=== PATIENT | male | born 1960 | race Caucasian/White ===

== ENCOUNTER 2020-07-05 20:29 | Emergency (ER) | payer BC, OTHER ==
[2020-07-05 20:36] VITALS: PULSE 89
--- NOTE | 2020-07-05 20:49 | EDM.PDOC ---
ED HPI GENERAL MEDICAL PROBLEM - General Chief Complaint: Neurological Problem Stated Complaint: POSS STROKE Time Seen by Provider: 07/05/20 20:32 Source of Information: Reports: Patient History Limitations: Reports: No Limitations - History of Present Illness INITIAL COMMENTS - FREE TEXT/NARRATIVE: Mr. Brown is a very pleasant 59-year-old gentleman who now presents to the ED with left hip weakness. He states that he fell off the toilet around 20:00 evening, due to left hip weakness. He had great difficulty getting up, and the triage nurse indicated that he needed assistance to be brought back to the exam room. He was brought to the ED by his daughter. He states that he has some discomfort in his left hip, but denies having pain anywhere else, or any tingling or numbness anywhere. He denies having a headache. No prior similar symptoms. The patient did not take any [id number] or home remedies prior to coming to the ED. The patient states that he has a history of both hypertension and diabetes, and that he takes his antihypertensive medication as prescribed every evening. An Accu-Chek at triage is found to be significantly elevated at 387. The pat ient states that that is not unusual, that his blood glucoses usually run between 80 and 350+. The patient does not take any other medications, including aspirin or anticoagulants. Here in the ED, the patient's initial BP is found to be elevated at 199/127, otherwise, he is hemodynamically stable, afebrile, saturating 96% on room air. Prior to 20:00 tonight, the patient denies having a recent fever, chills, sore throat, ear pain, nasal or sinus congestion, cough, dyspnea, chest pain, palpitations, nausea, vomiting, constipation, diarrhea, abdominal pain, urinary symptoms, recent weight gain or weight loss, recent bloody bowel movements or black bowel movements, recent joint aches, headaches, or rashes. The patient's PCP is Dr. Tavares Wayne. He did not receive an influenza vaccine this season, and declined an offer to receive one here in the ED. - Related Data Allergies Allergy/AdvReac Type Severity Reaction Status Date / Time No Known Allergies Allergy Verified 07/01/15 16:34 Home Meds: Home Meds Lisinopril 20 mg PO BID #30 tablet 07/01/15 [Rx] lisinopriL [Prinivil] 40 mg PO DAILY 07/01/15 [History] Past Medical History Cardiovascular History: Reports: Hypertension Endocrine/Metabolic History: Reports: Diabetes, Type II - Past Surgical History HEENT Surgical History: Reports: Oral Surgery (dental extraction) Social & Family History - Tobacco Use Tobacco Use Status *Q: Never Tobacco User Tobacco Use Within Last Twelve Months: Smokeless Tobacco (Quit chewing 2009) - Alcohol Use Alcohol Use History: No - Recreational Drug Use Recreational Drug Use: No - Living Situation & Occupation Living situation: Reports: , with Spouse, with Family (1 daughter + 2 grandkids) Occupation: Unemployed ED ROS GENERAL - Review of Systems Review Of Systems: Comprehensive ROS is negative, except as noted in HPI. ED EXAM, NEURO - Physical Exam Exam: See Below Exam Limited By: No Limitations General Appearance: Alert, WD/WN, No Apparent Distress Eye Exam: Bilateral Eye: EOMI, Normal Inspection Ears: Normal External Exam, Hearing Grossly Normal Nose: Normal Inspection Throat/Mouth: Normal Voice, No Airway Compromise, Other (Wearing a mask) Head Exam: Atraumatic, Normocephalic Neck: Normal Inspection, Full Range of Motion Respiratory/Chest: No Respiratory Distress, Lungs Clear, Normal Breath Sounds, No Accessory Muscle Use Cardiovascular: Normal Peripheral Pulses, Regular Rate, Rhythm, No Edema, No Gallop, No JVD, No Murmur, No Rub GI/Abdominal: Normal Bowel Sounds, Soft, Non-Tender, No Organomegaly, No Distention, No Abnormal Bruit, No Mass Neurological: Alert, CN II-XII Intact, Oriented x 3, Other (Very subtle weakness to left hip and knee flexion against resistance and extension. Very subtle weakness to left dorsiflexion and plantar flexion. No other focal neurologic deficits.) Back Exam: Normal Inspection, Full Range of Motion, NT Extremities: Normal Inspection, Normal Range of Motion, No Pedal Edema, Normal Capillary Refill Psychiatric: Normal Affect Skin Exam: Warm, Dry, Intact, Normal Color, No Rash #1 Interpretation EKG Date: 07/05/20 Time: 20:37 Rhythm: NSR Rate (Beats/Min): 87 [place]: LAD-Left [place] Deviation (due to LAFB) P-Wave: Enlarged (MIRANDA) QRS: RBBB (Late transition) ST-T: Normal QT: Normal Comparison: No Change (07/01/2015) Course - Vital Signs Last Recorded V/S: Last Vital Signs Temp 36.1 C 07/05/20 20:34 Pulse 89 07/05/20 20:34 Resp 16 07/05/20 21:26 BP 170/101 H 07/05/20 21:26 Pulse Ox 96 07/05/20 20:34 - Orders/Labs/Meds Orders: Active Orders 24 hr Category Date Time Status Blood Glucose Check, Bedside [RC] ONETIME Care 07/05/20 20:39 Active Chest 1V Frontal [CR] Stat Exams 07/05/20 20:42 Taken Head wo Cont [CT] Stat Exams 07/05/20 20:41 Taken Labs: Laboratory Tests 07/05/20 07/05/20 07/05/20 Range/Units 20:36 20:36 20:36 WBC 7.40 (4.23-9.07) K/mm3 RBC 5.69 (4.63-6.08) M/mm3 Hgb 17.4 (13.7-17.5) gm/dl Hct 50.7 (40.1-51.0) % MCV 89.1 (79.0-92.2) fl MCH 30.6 (25.7-32.2) pg MCHC 34.3 (32.2-35.5) g/dl RDW Std Deviation 40.7 (35.1-43.9) fL Plt Count 206 (163-337) K/mm3 MPV 8.9 L (9.4-12.3) fl Neutrophils % (Manual) 53 (40-60) % Band Neutrophils % 0 (0-10) % Lymphocytes % (Manual) 38 (20-40) % Atypical Lymphs % 0 % Monocytes % (Manual) 8 (2-10) % Eosinophils % (Manual) 0 L (0.8-7.0) % Basophils % (Manual) 1 (0.2-1.2) Platelet Estimate Adequate Plt Morphology Comment Normal RBC Morph Comment Normal PT 10.1 (9.7-12.0) SECONDS INR 0.94 APTT 23.9 (21.7-31.4) SECONDS D-Dimer, Quantitative 0.92 H (0.19-0.50) mg/L Sodium 137 (136-145) mEq/L Potassium 3.8 (3.5-5.1) mEq/L Chloride 99 (98-107) mEq/L Carbon Dioxide 26 D (21-32) mEq/L Anion Gap 15.8 H (5-15) BUN 23 H (7-18) mg/dL Creatinine 1.8 H (0.7-1.3) mg/dL Est Cr Clr Drug Dosing 39.38 mL/min Estimated GFR (MDRD) 39 (>60) mL/min BUN/Creatinine Ratio 12.8 L (14-18) Glucose 375 H (74-106) mg/dL Calcium 9.2 (8.5-10.1) mg/dL Magnesium 1.9 (1.8-2.4) mg/dl Total Bilirubin 0.6 (0.2-1.0) mg/dL AST 13 L (15-37) U/L ALT 29 (16-63) U/L Alkaline Phosphatase 91 (46-116) U/L Troponin I < 0.017 (0.00-0.056) ng/mL Total Protein 7.5 (6.4-8.2) g/dl Albumin 3.9 (3.4-5.0) g/dl Globulin 3.6 gm/dL Albumin/Globulin Ratio 1.1 (1-2) SARS-CoV-2 RNA (MEHRAN) (NEGATIVE) 07/05/20 Range/Units 20:58 WBC (4.23-9.07) K/mm3 RBC (4.63-6.08) M/mm3 Hgb (13.7-17.5) gm/dl Hct (40.1-51.0) % MCV (79.0-92.2) fl MCH (25.7-32.2) pg MCHC (32.2-35.5) g/dl RDW Std Deviation (35.1-43.9) fL Plt Count (163-337) K/mm3 MPV (9.4-12.3) fl Neutrophils % (Manual) (40-60) % Band Neutrophils % (0-10) % Lymphocytes % (Manual) (20-40) % Atypical Lymphs % % Monocytes % (Manual) (2-10) % Eosinophils % (Manual) (0.8-7.0) % Basophils % (Manual) (0.2-1.2) Platelet Estimate Plt Morphology Comment RBC Morph Comment PT (9.7-12.0) SECONDS INR APTT (21.7-31.4) SECONDS D-Dimer, Quantitative (0.19-0.50) mg/L Sodium (136-145) mEq/L Potassium (3.5-5.1) mEq/L Chloride (98-107) mEq/L Carbon Dioxide (21-32) mEq/L Anion Gap (5-15) BUN (7-18) mg/dL Creatinine (0.7-1.3) mg/dL Est Cr Clr Drug Dosing mL/min Estimated GFR (MDRD) (>60) mL/min BUN/Creatinine Ratio (14-18) Glucose (74-106) mg/dL Calcium (8.5-10.1) mg/dL Magnesium (1.8-2.4) mg/dl Total Bilirubin (0.2-1.0) mg/dL AST (15-37) U/L ALT (16-63) U/L Alkaline Phosphatase (46-116) U/L Troponin I (0.00-0.056) ng/mL Total Protein (6.4-8.2) g/dl Albumin (3.4-5.0) g/dl Globulin gm/dL Albumin/Globulin Ratio (1-2) SARS-CoV-2 RNA (MEHRAN) Negative (NEGATIVE) Meds: Medications Discontinued Medications Generic Name Dose Route Start Last Admin Trade Name Freq PRN Reason Stop Dose Admin Insulin Human Regular 5 unit 07/05/20 21:35 07/05/20 21:42 Humulin R IV 07/05/20 21:36 5 unit ONETIME STA Administration Labetalol HCl 10 mg 07/05/20 21:00 07/05/20 21:10 Normodyne IVPUSH 07/05/20 21:01 10 mg ONETIME STA Administration Protocol Labetalol HCl 10 mg 07/05/20 21:38 07/05/20 21:43 Normodyne IVPUSH 07/05/20 21:39 10 mg ONETIME STA Administration Protocol - Re-Assessments/Exams Free Text/Narrative Re-Assessment/Exam: 07/05/20 20:43 As above, the patient fell off the toilet due to left hip weakness around 20:00 this evening. On examination, he has very subtle left lower extremity weakness that may be due to some pain induced in his left buttock when he attempts to flex his left hip and knee against resistance. There is also subtle weakness to extension of the hip and knee, however, which would not be due to a buttock muscle strain, therefore there is some possibility that his symptoms could be due to a stroke. I have ordered a stat CT of the head without contrast, along with several blood tests, a chest x-ray, and, in case he needs to be admitted or transferred, a swab for the SARS-CoV-2 virus. 07/05/20 20:52 Preliminary review of the CT of the head appears to indicate a sizable hemorrhage in the right basal ganglia/thalamus area, or perhaps slightly superior. there appears to be extension into the right lateral ventricle. There appears to be some surrounding edema. Formal read per the Radiologist pending. I asked Tammie HUGGINS to check the patient's BP as soon as he is returned to his room. 07/05/20 21:03 Case discussed with Supriya at [facility] at 20:54. Current BP is 189/117 with a HR of 84 bpm, SpO2 98% on RA. Case then discussed with Dr. Chávez, Neurosurgeon at [facility], and Dr. Villanueva, Emergency Physician at [facility], at 20:59. Dr. Chávez did not feel that this would be a surgical case, and recommended that the patient be admitted to the medicine service. He recommended blood pressure control - I have already ordered labetalol [address] Villanueva accepted the patient for transfer to their facility. The patient will be flown by helicopter, however, I am told that they will not be able to get here for another 50 minutes. That is the fastest method of transfer. The CT images have been pushed to [facility]. 07/05/20 21:12 CT of the head without contrast is read by [facility] as "Acute hemorrhage in the left basal ganglia and thalamus with extension into the ventricular system. I reevaluated the patient. He is now demonstrating some left upper extremity weakness, although his left lower extremity weakness is unchanged. 07/05/20 21:36 Portable chest radiograph appears to be grossly normal. The cardiac silhouette is within normal limits. No pulmonary vascular congestion. No pleural effusions seen on this AP view. No focal infiltrate. No pneumothorax. Formal read per the Radiologist pending. The portable chest x-ray image has been pushed to [facility]. The patient's CBC is unremarkable. His CMP is remarkable for an anion gap slightly elevated at 15.8, with a bicarbonate normal at 26. His BUN/Cr is elevated at 23/1.8, with hyperglycemia of 375, and the remainder of his CMP being unremarkable. His magnesium level is within normal limits at 1.9. His troponin is undetectably low. His D-dimer is mildly elevated at 0.92. His coags are within normal limits. Results of his swab for the SARS-CoV-2 virus are still pending. The patient's BUN/Cr was 23/0.9 on 07/01/2015. Based on the above, I have ordered 5 units of regular insulin IVP. 07/05/20 21:39 The labetalol does not appear to have made a significant difference in his blood pressure, therefore I ordered an additional labetalol 10 mg IVP. 07/05/20 21:52 The patient's swab for the SARS-CoV-2 virus has returned negative. We are anticipating arrival of the flight crew in 8 minutes. 07/05/20 22:17 Contacted by Supriya at [facility], at 22:13. Notified that Dr. Cullen, the Ceramics Engineer, was going to take the patient directly to the ICU instead of having him go to the ED. I then discussed the case with Dr. Cullen. The flight crew will be notified of the change in destination upon arrival. Departure - Departure Time of Disposition: 21:05 Disposition: DC/Tfer to Acute Hospital 02 Condition: Fair Clinical Impression: Hemorrhagic stroke, Hyperglycemia due to type 2 diabetes mellitus, Acute renal insufficiency, Hypertensive emergency - Discharge Information *PRESCRIPTION DRUG MONITORING PROGRAM REVIEWED*: Not Applicable *COPY OF PRESCRIPTION DRUG MONITORING REPORT IN PATIENT NAFISA: Not Applicable Referrals: Tavares Wayne MD [Primary Care Provider] - Forms: ED Department Discharge Sepsis Event Note (ED) - Evaluation Sepsis Screening Result: No Definite Risk - Focused Exam Vital Signs: Vital Signs Temp Pulse Resp BP Pulse Ox 07/05/20 21:26 16 170/101 H 07/05/20 20:34 36.1 C 89 20 199/127 H 96 - My Orders Last 24 Hours: My Active Orders 07/05/20 20:39 Blood Glucose Check, Bedside [RC] ONETIME 07/05/20 20:41 Head wo Cont [CT] Stat 07/05/20 20:42 Chest 1V Frontal [CR] Stat - Assessment/Plan Last 24 Hours: My Active Orders 07/05/20 20:39 Blood Glucose Check, Bedside [RC] ONETIME 07/05/20 20:41 Head wo Cont [CT] Stat 07/05/20 20:42 Chest 1V Frontal [CR] Stat
[2020-07-05] MEDS ORDERED: Labetalol 100 MG/20 ML MDV IVPUSH STA ×2 (21:00→21:38)
[2020-07-05 21:27] VITALS: BP 170/101
[2020-07-05] MEDS ORDERED: Insulin Regular, Human 100 Units/ML 3 ML Vial IV STA (21:35)
--- NOTE | 2020-07-06 09:07 | CR ---
Chest: Portable view of the chest was obtained. Comparison: Prior chest x-ray of 07/01/15. Heart size and mediastinum are normal. Lungs are clear with no acute parenchymal change. Ossification is noted within the right coracoclavicular ligament. Old fracture is noted within the distal right clavicle. Impression: 1. Nothing acute is appreciated on portable chest x-ray. Diagnostic code #2
--- NOTE | 2020-07-06 09:07 | CT ---
Head CT Technique: Multiple axial sections through the brain were obtained. Intravenous contrast was utilized. Comparison: No prior intracranial imaging is available. Findings: Intraparenchymal hemorrhage is noted on the right side within the right basal ganglia and right thalamus. There is extension of this hemorrhage into the right lateral ventricle which extends into the third ventricle. Parenchymal hemorrhage measures approximately 4.4 x 1.9 cm. This hemorrhage causes mild midline shift by approximately 6 mm. Mild diminished density is scattered within the periventricular white matter most likely representing small vessel ischemic demyelination change. No other areas of abnormal intracranial hemorrhage are seen. Bone window settings were reviewed and show no acute osseous finding. Visualized mastoid sinuses and paranasal sinuses show nothing acute. No acute calvarial finding is appreciated. Impression: 1. Acute hemorrhage within the right thalamus and right basal ganglia with measurement of 4.4 x 1.9 cm. Location of this finding raises the possibility of hypertensive hemorrhage. Please correlate. 2. Rupture of this hemorrhage into the lateral and third ventricle are noted. 3. Midline shift of approximately 6 mm. Diagnostic code #5 I agree with preliminary report from [facility], finalized on 07/05/20, 10:01 PM [employer]
== END 2020-07-05 22:10 ==
LOC: JD.ED 20:29
DX: S06.309A Unspecified focal traumatic brain injury with loss of consciousness of unspecified duration, initial encounter (principal); E11.65 Type 2 diabetes mellitus with hyperglycemia; I16.1 Hypertensive emergency; I10 Essential (primary) hypertension; N28.9 Disorder of kidney and ureter, unspecified; Z79.899 Other long term (current) drug therapy; W18.11XA Fall from or off toilet without subsequent striking against object, initial encounter; Z87.891 Personal history of nicotine dependence
CPT/HCPCS: 36415; 70450; 71045; 80053; 82962; 83735; 84484; 85007; 85027; 85379; 85610; 85730; 87635; 93005; 96374; 96376; 99285; J1815; J3490; U0002

== ENCOUNTER 2022-06-27 13:50 | Inpatient (IN) | payer BC, OTHER ==
[2022-06-27] MEDS ORDERED: Insulin Regular, Human 100 Units/ML 3 ML Vial IV ONE (14:12)
[2022-06-27] MEDS ORDERED: Insulin Regular in 0.9 % NACL 100 ML IV SCH (14:15)
[2022-06-27] MEDS ORDERED: Sodium Chloride 0.9% 1,000 ML ONE (14:25)
[2022-06-27] MEDS ORDERED: Sodium Chloride 0.9% 1,000 ML IV ONE (14:28)
[2022-06-27] MEDS ORDERED: Sodium Chloride 0.9% 10 ML Syringe FLUSH ONE (14:42)
[2022-06-27] MEDS ORDERED: Iopamidol 755 Mg/ML 100 ML Bottle IVPUSH ONE (14:42)
[2022-06-27] MEDS ORDERED: Sodium Chloride 0.9% 100 ML IV SCH (14:45)
[2022-06-27] MEDS: NS + KCl 20mEq/L 1,000 ML IV SCH ×2 (15:43→17:47)
[2022-06-27 18:49] LABS: CORONAVIRUS COVID-19 NAA NEGATIVE (NEGATIVE)
[2022-06-27] MEDS ORDERED: Dextrose 5%-0.9% NaCl with KCl 1,000 ML IV SCH (20:15)
[2022-06-28] MEDS ORDERED: Dextrose 5%-0.9% NaCl 1,000 ML IV SCH (03:15)
[2022-06-28] MEDS ORDERED: Dextrose 5% in Water 1,000 ML IV SCH (11:45)
[2022-06-28] MEDS ORDERED: NS + KCl 20mEq/L 1,000 ML IV SCH (15:30)
[2022-06-28] MEDS ORDERED: Dextrose 5%-0.45% NaCl 1,000 ML IV SCH (15:30)
[2022-06-28] MEDS ORDERED: Sodium Chloride 0.45% 1,000 ML IV SCH (15:30)
[2022-06-28] MEDS: Insulin Aspart Protamine/Insulin Aspart 70-30 100 Units/ML 10 ML Vial SUBCUT SCH ×4 (17:17→23:01)
[2022-06-28] MEDS ORDERED: Insulin Glargine,Human Rec. Analog 100 Units/ML 3 ML Pen SUBCUT ONE (21:35)
[2022-06-29] MEDS: Insulin Aspart Protamine/Insulin Aspart 70-30 100 Units/ML 10 ML Vial SUBCUT SCH (07:16)
[2022-06-29] MEDS ORDERED: Potassium Chloride 20 MEQ Tab.ER PO ONE (07:57)
[2022-06-29] MEDS: Insulin Lispro 100 Unit/ML 3 ML KwikPen SUBCUT SCH ×3 (11:12→22:12)
[2022-06-29] MEDS ORDERED: Enoxaparin 30 MG/0.3 ML Syringe SUBCUT SCH (13:30)
[2022-06-29] MEDS ORDERED: Enalaprilat 1.25 MG/ML SDV IVPUSH ONE (21:06)
[2022-06-29] MEDS ORDERED: Lisinopril 10 MG Tab PO ONE (21:50)
[2022-06-30] MEDS ORDERED: metFORMIN 500 MG Tab PO SCH (07:00)
[2022-06-30] MEDS: Insulin Lispro 100 Unit/ML 3 ML KwikPen SUBCUT SCH ×2 (07:30→11:34)
[2022-06-30] MEDS ORDERED: Empagliflozin 25 MG Tab PO SCH (09:00)
[2022-06-30] MEDS ORDERED: Lisinopril 20 MG Tab PO SCH (09:00)
[2022-06-30] MEDS ORDERED: Carvedilol 12.5 MG Tab PO SCH (09:00)
[2022-06-30] MEDS ORDERED: DULoxetine 30 MG Cap PO SCH (09:00)
[2022-06-30 10:36] VITALS: BP 158/93; PULSE 94
[2022-06-30] MEDS ORDERED: Insulin Lispro 100 Unit/ML 3 ML KwikPen SUBCUT ONE (11:24)
== END 2022-06-30 13:38 | disposition home or self-care (01) | DRG 420 ==
LOC: JD.ED 13:50 → JD.ICU 06-28 14:45 → JD.OB 06-29 18:06
PROVIDERS: ADMIT Pediatrics; ATTEND Pediatrics
DX: E11.11 Type 2 diabetes mellitus with ketoacidosis with coma (principal); E11.65 Type 2 diabetes mellitus with hyperglycemia; E86.0 Dehydration; E87.6 Hypokalemia; H54.7 Unspecified visual loss; I10 Essential (primary) hypertension; Z86.19 Personal history of other infectious and parasitic diseases; Z79.899 Other long term (current) drug therapy; Z79.4 Long term (current) use of insulin; I69.351 Hemiplegia and hemiparesis following cerebral infarction affecting right dominant side; I69.328 Other speech and language deficits following cerebral infarction; Z88.8 Allergy status to other drugs, medicaments and biological substances; Z20.822 Contact with and (suspected) exposure to COVID-19
CPT/HCPCS: 0241U; 36415; 36600; 70450; 70450-26; 70496; 70496-26; 70498; 70498-26; 70551; 70551-26; 71045; 71045-26; 80048; 80053; 81001; 82009; 82803; 82947; 83735; 84484; 85025; 85610; 85730; 86140; 93005; A9270-GY; J1815; J1815-GY; J3480; J3490; J7030; J7042; J7060; Q9967

== ENCOUNTER 2022-07-03 20:46 | Emergency (ER) | payer BC ==
[2022-07-03 21:39] VITALS: BP 114/74; PULSE 84
== END 2022-07-03 23:37 | disposition home or self-care (01) ==
LOC: JD.ED 20:46
DX: E11.10 Type 2 diabetes mellitus with ketoacidosis without coma (principal); I10 Essential (primary) hypertension; E78.00 Pure hypercholesterolemia, unspecified; Z86.73 Personal history of transient ischemic attack (TIA), and cerebral infarction without residual deficits; Z79.899 Other long term (current) drug therapy; Z91.018 Allergy to other foods
CPT/HCPCS: 36415; 70450; 70450-26; 80053; 82947; 83735; 85025; 99284

== ENCOUNTER 2023-10-04 16:25 | Observation (INO) | payer BC, MEDICARE ==
[2023-10-04 17:17] LABS: BASOPHILS ABSOLUTE AUTO 0.1 K/mm3 (0.0-0.2); BASOPHILS PERCENT AUTO 0.7 % (0.0-1.0); EOSINOPHILS ABSOLUTE AUTO 0.1 K/mm3 (0.0-0.4); EOSINOPHILS PERCENT AUTO 0.8 % (0.0-6.0); HEMATOCRIT 49.5 % (42.0-52.0); HEMOGLOBIN 17.1 gm/dl (14.0-18.0); IMMATURE GRAN ABSOLUTE AUTO 0.05 K/mm3 (0.00-0.05); IMMATURE GRAN PERCENT AUTO 0.6 % (0.0-0.4); LYMPHOCYTES ABSOLUTE AUTO 3.5 K/mm3 (1.0-4.8); LYMPHOCYTES PERCENT AUTO 40.3 % (24.0-44.0); MEAN CORPUSCULAR HEMOGLOBIN 30.9 pg (28.0-32.0); MEAN CORPUSCULAR HGB CONC 34.5 g/dl (32.0-36.0); MEAN CORPUSCULAR VOLUME 89.5 fl (83.0-99.0); MEAN PLATELET VOLUME 8.6 fl (9.4-12.4); MONOCYTES ABSOLUTE AUTO 0.8 K/mm3 (0.0-0.8); MONOCYTES PERCENT AUTO 8.7 % (0.0-8.0); NEUTROPHILS ABSOLUTE AUTO 4.2 K/mm3 (1.8-7.7); NEUTROPHILS PERCENT AUTO 48.9 % (41.0-71.0); PLATELET COUNT,PLT 245 K/mm3 (150-400); RED BLOOD CELL COUNT 5.53 M/mm3 (4.52-5.90); WHITE BLOOD CELL COUNT,WBC 8.58 K/mm3 (3.9-11.3)
[2023-10-04] MEDS: Iopamidol 612 MG/ML 100 ML Bottle IVPUSH ONE (17:26)
[2023-10-04 17:27] LABS: INR 0.98; PROTHROMBIN TIME 10.5 SECONDS (9.7-12.0)
[2023-10-04] MEDS: Sodium Chloride 0.9% 100 ML IV SCH (17:27)
[2023-10-04] MEDS: Iopamidol 755 Mg/ML 100 ML Bottle IVPUSH ONE (17:27)
[2023-10-04 17:28] LABS: PTT,PARTIAL THROMBOPLSTIN TIME 29.3 SECONDS (21.7-31.4)
[2023-10-04 17:31] LABS: A/G RATIO 1.1 (1-2); ALBUMIN 3.7 g/dl (3.4-5.0); BILIRUBIN TOTAL 0.7 mg/dL (0.2-1.0); BUN/CREATININE RATIO 13.8 (14-18); CALCIUM 9.1 mg/dL (8.5-10.1); CREATININE 1.3 mg/dL (0.7-1.3); EST CRCL DRUG DOSING (CG) 52.49 mL/min; PROTEIN TOTAL,TP 7.2 g/dl (6.4-8.2)
[2023-10-04] MEDS: Aspirin 81 MG Tab.Chew PO ONE (21:30)
[2023-10-05] MEDS ORDERED: Aspirin 81 MG Tab.Chew PO SCH (03:45)
[2023-10-05] MEDS ORDERED: Acetaminophen Soln 650 MG/20.3 ML UD Cup PO PRN (05:16)
[2023-10-05] MEDS ORDERED: Ondansetron 4 MG/2 ML SDV IVPUSH PRN (05:17)
[2023-10-05 05:53] LABS: BASOPHILS ABSOLUTE AUTO 0.1 K/mm3 (0.0-0.2); BASOPHILS PERCENT AUTO 0.7 % (0.0-1.0); EOSINOPHILS ABSOLUTE AUTO 0.2 K/mm3 (0.0-0.4); EOSINOPHILS PERCENT AUTO 1.8 % (0.0-6.0); HEMATOCRIT 45.4 % (42.0-52.0); HEMOGLOBIN 15.8 gm/dl (14.0-18.0); IMMATURE GRAN ABSOLUTE AUTO 0.05 K/mm3 (0.00-0.05); IMMATURE GRAN PERCENT AUTO 0.6 % (0.0-0.4); LYMPHOCYTES ABSOLUTE AUTO 3.5 K/mm3 (1.0-4.8); MEAN CORPUSCULAR HGB CONC 34.8 g/dl (32.0-36.0); MEAN CORPUSCULAR VOLUME 89.2 fl (83.0-99.0); MEAN PLATELET VOLUME 8.5 fl (9.4-12.4); MONOCYTES ABSOLUTE AUTO 0.8 K/mm3 (0.0-0.8); MONOCYTES PERCENT AUTO 9.4 % (0.0-8.0); NEUTROPHILS ABSOLUTE AUTO 3.8 K/mm3 (1.8-7.7); NEUTROPHILS PERCENT AUTO 45.5 % (41.0-71.0); PLATELET COUNT,PLT 216 K/mm3 (150-400); RED BLOOD CELL COUNT 5.09 M/mm3 (4.52-5.90); WHITE BLOOD CELL COUNT,WBC 8.38 K/mm3 (3.9-11.3)
[2023-10-05 06:18] LABS: ANION GAP 13.8 (5-15); BUN/CREATININE RATIO 14.5 (14-18); CALCIUM 8.7 mg/dL (8.5-10.1); CREATININE 1.1 mg/dL (0.7-1.3); EST CRCL DRUG DOSING (CG) 62.03 mL/min; POTASSIUM,K 3.8 mEq/L (3.5-5.1)
[2023-10-05] MEDS: Aspirin 81 MG Tab.EC PO SCH (10:31)
[2023-10-05] MEDS: DULOXETINE 30 MG PO SCH (10:32)
[2023-10-05] MEDS: LISINOPRIL 40 MG PO SCH (10:34)
[2023-10-05] MEDS: AMLODIPINE 10 MG PO SCH (10:34)
[2023-10-05] MEDS: CARVEDILOL 12.5 MG PO SCH (10:35)
[2023-10-05] MEDS: ESCITALOPRAM OXALATE 10 MG PO SCH (10:36)
[2023-10-05] MEDS: Donepezil 10 MG Tab PO SCH (10:38)
[2023-10-05] MEDS: Heparin Sodium 5,000 Units/ML Vial SUBCUT SCH ×2 (12:56→13:56)
[2023-10-05] MEDS: Insulin Regular, Human 100 Units/ML 3 ML Vial SUBCUT SCH (14:09)
[2023-10-06 06:15] LABS: BASOPHILS ABSOLUTE AUTO 0.1 K/mm3 (0.0-0.2); BASOPHILS PERCENT AUTO 0.8 % (0.0-1.0); EOSINOPHILS ABSOLUTE AUTO 0.2 K/mm3 (0.0-0.4); EOSINOPHILS PERCENT AUTO 2.1 % (0.0-6.0); HEMATOCRIT 44.4 % (42.0-52.0); HEMOGLOBIN 15.4 gm/dl (14.0-18.0); IMMATURE GRAN ABSOLUTE AUTO 0.06 K/mm3 (0.00-0.05); IMMATURE GRAN PERCENT AUTO 0.7 % (0.0-0.4); LYMPHOCYTES ABSOLUTE AUTO 3.2 K/mm3 (1.0-4.8); LYMPHOCYTES PERCENT AUTO 36.7 % (24.0-44.0); MEAN CORPUSCULAR HEMOGLOBIN 30.3 pg (28.0-32.0); MEAN CORPUSCULAR HGB CONC 34.7 g/dl (32.0-36.0); MEAN CORPUSCULAR VOLUME 87.2 fl (83.0-99.0); MEAN PLATELET VOLUME 8.8 fl (9.4-12.4); MONOCYTES ABSOLUTE AUTO 0.8 K/mm3 (0.0-0.8); MONOCYTES PERCENT AUTO 9.3 % (0.0-8.0); NEUTROPHILS ABSOLUTE AUTO 4.3 K/mm3 (1.8-7.7); NEUTROPHILS PERCENT AUTO 50.4 % (41.0-71.0); PLATELET COUNT,PLT 221 K/mm3 (150-400); RED BLOOD CELL COUNT 5.09 M/mm3 (4.52-5.90); WHITE BLOOD CELL COUNT,WBC 8.58 K/mm3 (3.9-11.3)
[2023-10-06 06:51] LABS: A/G RATIO 1.1 (1-2); ALBUMIN 3.2 g/dl (3.4-5.0); ANION GAP 14.9 (5-15); BILIRUBIN TOTAL 0.6 mg/dL (0.2-1.0); BUN/CREATININE RATIO 14.2 (14-18); CALCIUM 8.6 mg/dL (8.5-10.1); CREATININE 1.2 mg/dL (0.7-1.3); EST CRCL DRUG DOSING (CG) 56.86 mL/min; POTASSIUM,K 3.9 mEq/L (3.5-5.1); PROTEIN TOTAL,TP 6.2 g/dl (6.4-8.2)
[2023-10-06 12:25] VITALS: BP 131/79; PULSE 77
== END 2023-10-06 15:30 | disposition home or self-care (01) ==
LOC: JD.ED 16:25 → JD.MS 19:19
PROVIDERS: ADMIT Internal Medicine; ATTEND Internal Medicine
DX: I63.9 Cerebral infarction, unspecified (principal); E11.9 Type 2 diabetes mellitus without complications; I10 Essential (primary) hypertension; E78.00 Pure hypercholesterolemia, unspecified
CPT/HCPCS: 36415; 70450; 70496; 70498; 70551; 80048; 80053; 80061; 80307; 82947; 84484; 85025; 85610; 85730; 93005; 93307; 97161; 99285; A9270; J1644; J1815; J3490; Q9967; 96372; G0378

== ENCOUNTER 2024-03-16 09:55 | Inpatient (IN) | payer MEDICARE ==
[2024-03-16 10:56] LABS: BASOPHILS ABSOLUTE AUTO 0.1 K/mm3 (0.0-0.2); BASOPHILS PERCENT AUTO 0.6 % (0.0-1.0); EOSINOPHILS ABSOLUTE AUTO 0.1 K/mm3 (0.0-0.4); EOSINOPHILS PERCENT AUTO 1.4 % (0.0-6.0); HEMATOCRIT 45.3 % (42.0-52.0); HEMOGLOBIN 15.5 gm/dl (14.0-18.0); IMMATURE GRAN ABSOLUTE AUTO 0.04 K/mm3 (0.00-0.05); IMMATURE GRAN PERCENT AUTO 0.5 % (0.0-0.4); LYMPHOCYTES ABSOLUTE AUTO 2.8 K/mm3 (1.0-4.8); LYMPHOCYTES PERCENT AUTO 31.9 % (24.0-44.0); MEAN CORPUSCULAR HEMOGLOBIN 31.1 pg (28.0-32.0); MEAN CORPUSCULAR HGB CONC 34.2 g/dl (32.0-36.0); MEAN PLATELET VOLUME 9.1 fl (9.4-12.4); MONOCYTES ABSOLUTE AUTO 0.7 K/mm3 (0.0-0.8); MONOCYTES PERCENT AUTO 7.8 % (0.0-8.0); NEUTROPHILS PERCENT AUTO 57.8 % (41.0-71.0); PLATELET COUNT,PLT 191 K/mm3 (150-400); RED BLOOD CELL COUNT 4.98 M/mm3 (4.52-5.90); WHITE BLOOD CELL COUNT,WBC 8.61 K/mm3 (3.9-11.3)
[2024-03-16] MEDS: Sodium Chloride 0.9% 1,000 ML IV ONE (11:00)
[2024-03-16] MEDS: Pantoprazole 40 MG Vial IVPUSH ONE (11:00)
[2024-03-16] MEDS: Sodium Chloride 0.9% 10 ML Syringe FLUSH PRN ×2 (11:00→11:34)
[2024-03-16 11:17] LABS: A/G RATIO 1.2 (1-2); ALBUMIN 3.7 g/dl (3.4-5.0); BILIRUBIN TOTAL 0.6 mg/dL (0.2-1.0); CALCIUM 8.8 mg/dL (8.5-10.1); EST CRCL DRUG DOSING (CG) 60.06 mL/min; PROTEIN TOTAL,TP 6.9 g/dl (6.4-8.2)
[2024-03-16] MEDS: Iopamidol 755 Mg/ML 100 ML Bottle IVPUSH ONE (11:33)
[2024-03-16 12:44] LABS: APPEARANCE,URINE CLEAR (Clear); BILIRUBIN,URINE NEGATIVE (Negative); COLOR,URINE YELLOW (Yellow); GLUCOSE,URINE 2+ (Negative); KETONES,URINE NEGATIVE (Negative); LEUKOCYTE ESTERASE,URINE NEGATIVE (Negative); NITRITE,URINE NEGATIVE (Negative); OCCULT BLOOD,URINE NEGATIVE (Negative); PH,URINE 5.5 (5.0-8.0); PROTEIN,URINE NEGATIVE (Negative); UROBILINOGEN,URINE 0.2 (0.2-1.0)
[2024-03-16] MEDS ORDERED: Acetaminophen 325 MG Tab PO PRN (17:21)
[2024-03-16] MEDS ORDERED: 50% Dextrose in Water 50 ML Syringe IVPUSH PRN (17:24)
[2024-03-16] MEDS: Insulin Lispro 100 Unit/ML 3 ML KwikPen SUBCUT SCH (18:05)
[2024-03-16 18:35] LABS: HEMATOCRIT 41.2 % (42.0-52.0); HEMOGLOBIN 14.2 gm/dl (14.0-18.0)
[2024-03-17 00:15] LABS: HEMATOCRIT 39.5 % (42.0-52.0); HEMOGLOBIN 13.5 gm/dl (14.0-18.0)
[2024-03-17 06:59] LABS: HEMOGLOBIN 13.6 gm/dl (14.0-18.0)
[2024-03-17 08:33] LABS: BASOPHILS ABSOLUTE AUTO 0.1 K/mm3 (0.0-0.2); BASOPHILS PERCENT AUTO 0.7 % (0.0-1.0); EOSINOPHILS ABSOLUTE AUTO 0.1 K/mm3 (0.0-0.4); EOSINOPHILS PERCENT AUTO 1.4 % (0.0-6.0); HEMATOCRIT 41.8 % (42.0-52.0); HEMOGLOBIN 14.1 gm/dl (14.0-18.0); IMMATURE GRAN ABSOLUTE AUTO 0.05 K/mm3 (0.00-0.05); IMMATURE GRAN PERCENT AUTO 0.6 % (0.0-0.4); LYMPHOCYTES ABSOLUTE AUTO 2.7 K/mm3 (1.0-4.8); LYMPHOCYTES PERCENT AUTO 31.8 % (24.0-44.0); MEAN CORPUSCULAR HEMOGLOBIN 30.9 pg (28.0-32.0); MEAN CORPUSCULAR HGB CONC 33.7 g/dl (32.0-36.0); MEAN CORPUSCULAR VOLUME 91.5 fl (83.0-99.0); MONOCYTES ABSOLUTE AUTO 0.7 K/mm3 (0.0-0.8); MONOCYTES PERCENT AUTO 7.8 % (0.0-8.0); NEUTROPHILS ABSOLUTE AUTO 4.9 K/mm3 (1.8-7.7); NEUTROPHILS PERCENT AUTO 57.7 % (41.0-71.0); PLATELET COUNT,PLT 189 K/mm3 (150-400); RED BLOOD CELL COUNT 4.57 M/mm3 (4.52-5.90); WHITE BLOOD CELL COUNT,WBC 8.56 K/mm3 (3.9-11.3)
[2024-03-17] MEDS ORDERED: Clopidogrel 75 MG Tab PO SCH (09:00)
[2024-03-17 11:26] LABS: BASOPHILS PERCENT AUTO 0.4 % (0.0-1.0); EOSINOPHILS ABSOLUTE AUTO 0.1 K/mm3 (0.0-0.4); EOSINOPHILS PERCENT AUTO 1.1 % (0.0-6.0); HEMATOCRIT 43.1 % (42.0-52.0); HEMOGLOBIN 14.7 gm/dl (14.0-18.0); IMMATURE GRAN ABSOLUTE AUTO 0.04 K/mm3 (0.00-0.05); IMMATURE GRAN PERCENT AUTO 0.4 % (0.0-0.4); LYMPHOCYTES ABSOLUTE AUTO 3.1 K/mm3 (1.0-4.8); LYMPHOCYTES PERCENT AUTO 32.9 % (24.0-44.0); MEAN CORPUSCULAR HEMOGLOBIN 31.1 pg (28.0-32.0); MEAN CORPUSCULAR HGB CONC 34.1 g/dl (32.0-36.0); MEAN CORPUSCULAR VOLUME 91.1 fl (83.0-99.0); MEAN PLATELET VOLUME 8.8 fl (9.4-12.4); MONOCYTES ABSOLUTE AUTO 0.6 K/mm3 (0.0-0.8); MONOCYTES PERCENT AUTO 6.3 % (0.0-8.0); NEUTROPHILS ABSOLUTE AUTO 5.5 K/mm3 (1.8-7.7); NEUTROPHILS PERCENT AUTO 58.9 % (41.0-71.0); PLATELET COUNT,PLT 197 K/mm3 (150-400); RED BLOOD CELL COUNT 4.73 M/mm3 (4.52-5.90); WHITE BLOOD CELL COUNT,WBC 9.37 K/mm3 (3.9-11.3)
[2024-03-17] MEDS ORDERED: Pantoprazole 40 MG in Sodium Chloride 0.9% 100 ML IV SCH (12:00)
[2024-03-17] MEDS: Pantoprazole 40 MG Vial IVPUSH SCH (13:11)
[2024-03-17] MEDS: Polyethylene Glycol/Electrolytes 4,000 ML Bottle PO ONE (17:46)
[2024-03-18] MEDS: Lactated Ringers 1,000 ML IV SCH (01:15)
[2024-03-18 04:54] LABS: BASOPHILS ABSOLUTE AUTO 0.1 K/mm3 (0.0-0.2); BASOPHILS PERCENT AUTO 0.7 % (0.0-1.0); EOSINOPHILS ABSOLUTE AUTO 0.1 K/mm3 (0.0-0.4); EOSINOPHILS PERCENT AUTO 1.8 % (0.0-6.0); HEMATOCRIT 36.8 % (42.0-52.0); HEMOGLOBIN 12.6 gm/dl (14.0-18.0); IMMATURE GRAN ABSOLUTE AUTO 0.02 K/mm3 (0.00-0.05); IMMATURE GRAN PERCENT AUTO 0.3 % (0.0-0.4); LYMPHOCYTES ABSOLUTE AUTO 2.4 K/mm3 (1.0-4.8); LYMPHOCYTES PERCENT AUTO 35.1 % (24.0-44.0); MEAN CORPUSCULAR HGB CONC 34.2 g/dl (32.0-36.0); MEAN CORPUSCULAR VOLUME 90.6 fl (83.0-99.0); MONOCYTES ABSOLUTE AUTO 0.7 K/mm3 (0.0-0.8); MONOCYTES PERCENT AUTO 9.6 % (0.0-8.0); NEUTROPHILS ABSOLUTE AUTO 3.6 K/mm3 (1.8-7.7); NEUTROPHILS PERCENT AUTO 52.5 % (41.0-71.0); PLATELET COUNT,PLT 173 K/mm3 (150-400); RED BLOOD CELL COUNT 4.06 M/mm3 (4.52-5.90); WHITE BLOOD CELL COUNT,WBC 6.84 K/mm3 (3.9-11.3)
[2024-03-18 05:24] LABS: A/G RATIO 1.2 (1-2); ALBUMIN 3.2 g/dl (3.4-5.0); ANION GAP 13.1 (5-15); BILIRUBIN TOTAL 0.6 mg/dL (0.2-1.0); BUN/CREATININE RATIO 25.6 (14-18); CALCIUM 8.4 mg/dL (8.5-10.1); CREATININE 0.9 mg/dL (0.7-1.3); EST CRCL DRUG DOSING (CG) 74.83 mL/min; MAGNESIUM 1.7 mg/dL (1.8-2.4); PHOSPHORUS 3.4 mg/dL (2.6-4.7); POTASSIUM,K 4.1 mEq/L (3.5-5.1); PROTEIN TOTAL,TP 5.9 g/dl (6.4-8.2)
[2024-03-18] MEDS: Magnesium Sulfate/Water 2 GM in Premix Bag 1 BAG IV ONE (09:52)
[2024-03-18] MEDS ORDERED: Midazolam 1 MG/ML 2 ML SDV ONE (10:25)
[2024-03-18] MEDS ORDERED: fentaNYL 100 MCG/2 ML SDV ONE (10:25)
[2024-03-18] MEDS ORDERED: Lidocaine 1% PF 2 ML SDV ONE ×2 (10:25)
[2024-03-18] MEDS ORDERED: Propofol 200 MG/20 ML SDV ONE ×3 (10:25)
[2024-03-18] MEDS ORDERED: Lidocaine 1% 4 ML ONE (10:25)
[2024-03-18] MEDS ORDERED: Lactated Ringers 1,000 ML ONE (11:33)
[2024-03-19 06:30] LABS: HEMOGLOBIN 12.8 gm/dl (14.0-18.0); MEAN CORPUSCULAR HEMOGLOBIN 30.9 pg (28.0-32.0); MEAN CORPUSCULAR HGB CONC 34.6 g/dl (32.0-36.0); MEAN CORPUSCULAR VOLUME 89.4 fl (83.0-99.0); PLATELET COUNT,PLT 170 K/mm3 (150-400); RED BLOOD CELL COUNT 4.14 M/mm3 (4.52-5.90); WHITE BLOOD CELL COUNT,WBC 7.45 K/mm3 (3.9-11.3)
[2024-03-19 11:23] VITALS: BP 129/75; PULSE 79
== END 2024-03-19 11:00 | disposition home or self-care (01) | DRG 379 ==
LOC: JD.ED 09:55 → JD.MS 13:24 → OBSVTOIN 03-17 12:40 → JD.MS 03-18 06:20
PROVIDERS: ADMIT Family Medicine; ATTEND Student in an Organized Health Care Education/Training Program
PROC: 0DBM8ZX Excision of Descending Colon, Via Natural or Artificial Opening Endoscopic, Diagnostic (ICD-10-PCS; 2024-03-18)
PROC: 0DBL8ZX Excision of Transverse Colon, Via Natural or Artificial Opening Endoscopic, Diagnostic (ICD-10-PCS; 2024-03-18)
PROC: 0DBB8ZX Excision of Ileum, Via Natural or Artificial Opening Endoscopic, Diagnostic (ICD-10-PCS; 2024-03-18)
PROC: 0DB98ZX Excision of Duodenum, Via Natural or Artificial Opening Endoscopic, Diagnostic (ICD-10-PCS; principal; 2024-03-18 12:00)
PROC: 0DB78ZX Excision of Stomach, Pylorus, Via Natural or Artificial Opening Endoscopic, Diagnostic (ICD-10-PCS; 2024-03-18 12:00)
DX: K92.2 Gastrointestinal hemorrhage, unspecified (principal); K29.71 Gastritis, unspecified, with bleeding; K29.81 Duodenitis with bleeding; K57.31 Diverticulosis of large intestine without perforation or abscess with bleeding; E78.00 Pure hypercholesterolemia, unspecified; I10 Essential (primary) hypertension; Z79.84 Long term (current) use of oral hypoglycemic drugs; H54.7 Unspecified visual loss; E11.9 Type 2 diabetes mellitus without complications; F03.90 Unspecified dementia, unspecified severity, without behavioral disturbance, psychotic disturbance, mood disturbance, and anxiety; Z86.73 Personal history of transient ischemic attack (TIA), and cerebral infarction without residual deficits; Z79.82 Long term (current) use of aspirin; Z79.02 Long term (current) use of antithrombotics/antiplatelets; Z91.018 Allergy to other foods; Z88.8 Allergy status to other drugs, medicaments and biological substances; Z79.899 Other long term (current) drug therapy; Z79.4 Long term (current) use of insulin; Z98.890 Other specified postprocedural states
CPT/HCPCS: 36415 ×2; 74177; 80053; 81003; 82272; 82947 ×3; 84484; 85014 ×3; 85018 ×3; 85025 ×3; 86850; 86900; 86901; 87641; 93005; 96361; 96374; 99285; J2470; J3490 ×2; J7030; Q9967; 83735; 84100; 85027; 93010; A9270-GY; G0378; J1815; J2250; J2704; J3010; J3475; J7120

== ENCOUNTER 2025-04-28 07:39 | Day surgery (SDC) | payer MEDICARE ==
[~2025-04-28 07:39] MED LIST: Lactated Ringers 1,000 ML IV SCH; Sodium Chloride 0.9% 10 ML Syringe FLUSH PRN
[2025-04-28] MEDS: Lactated Ringers 1,000 ML IV SCH (08:00)
[2025-04-28] MEDS ORDERED: Propofol 200 MG/20 ML SDV ONE ×2 (08:44→09:06)
[2025-04-28] MEDS ORDERED: Sodium Chloride 0.9% 10 ML Syringe FLUSH SCH (09:00)
[2025-04-28 10:48] VITALS: BP 120/78; PULSE 78
== END 2025-04-28 10:55 | disposition home or self-care (01) ==
LOC: JD.SDS 07:39
PROVIDERS: ATTEND Surgery
DX: Z12.11 Encounter for screening for malignant neoplasm of colon (principal); K63.89 Other specified diseases of intestine; K62.89 Other specified diseases of anus and rectum; K57.30 Diverticulosis of large intestine without perforation or abscess without bleeding; E11.9 Type 2 diabetes mellitus without complications; I10 Essential (primary) hypertension; E78.00 Pure hypercholesterolemia, unspecified; Z79.4 Long term (current) use of insulin; Z88.8 Allergy status to other drugs, medicaments and biological substances; Z79.899 Other long term (current) drug therapy; Z86.0100 Personal history of colon polyps, unspecified
CPT/HCPCS: 45380; J2704; J7120; 00811

== ENCOUNTER 2025-05-26 12:28 | Day surgery (SDC) | payer MEDICARE ==
[~2025-05-26 12:28] MED LIST changes: -Lactated Ringers 1,000 ML IV SCH; +Pilocarpine 4% Ophth Soln 15 ML Bot EYERT SCH; -Sodium Chloride 0.9% 10 ML Syringe FLUSH PRN
[2025-05-26 12:46] VITALS: BP 148/90; PULSE 66
[2025-05-26] MEDS: Polymyxin B/Trimethoprim 10 ML Bottle EYERT SCH (12:46)
[2025-05-26] MEDS: Tropicamide 1% Ophth Soln 3 ML Bottle EYERT SCH (13:02)
[2025-05-26] MEDS: Tetracaine HCl/PF 0.5% 4 ML Bottle EYEBOTH SCH (14:00)
[2025-05-26] MEDS: Lidocaine 1% PF 2 ML SDV INJECT SCH (14:19)
[2025-05-26] MEDS: Cefuroxime 10 MG/ML SYRINGE EYERT SCH (14:32)
== END 2025-05-26 14:45 | disposition home or self-care (01) ==
LOC: JD.SDS 12:28
PROVIDERS: ATTEND Ophthalmology
DX: E11.36 Type 2 diabetes mellitus with diabetic cataract (principal); H26.9 Unspecified cataract; E78.00 Pure hypercholesterolemia, unspecified; I10 Essential (primary) hypertension; F32.A Depression, unspecified; F41.9 Anxiety disorder, unspecified; Z88.8 Allergy status to other drugs, medicaments and biological substances; Z79.4 Long term (current) use of insulin; Z79.899 Other long term (current) drug therapy
CPT/HCPCS: A9270-GY; J0697; J3490